=== PATIENT | male | born 1995 ===

== ENCOUNTER 2020-07-20 04:07 | Observation (INO) | payer MEDICAID, OTHER ==
[2020-07-20 04:53] LABS: Basophils % (Auto) 0.3 % (0.0-1.8); Eosinophils # (Auto) 0.1 K/mm3 (0.0-0.4); Eosinophils % (Auto) 0.9 % (0.0-4.3); Hematocrit 47.3 % (35.5-45.6); Hemoglobin 16.2 gm/dl (11.8-15.2); Lymphocytes # (Auto) 1.8 K/mm3 (1.2-5.4); Lymphocytes % (Auto) 25.9 % (13.4-35.0); Mean Corpuscular HGB Conc 34 % (32-34); Mean Corpuscular Volume 81 fl (84-94); Monocytes # (Auto) 0.6 K/mm3 (0.0-0.8); Monocytes % (Auto) 7.9 % (0.0-7.3); Platelet Count 347 K/mm3 (140-440); Red Blood Count 5.86 M/mm3 (3.65-5.03); Red Cell Distribution Width 13.1 % (13.2-15.2)
[2020-07-20 05:17] LABS: Alanine Aminotransferase 32 units/L (7-56); Albumin 4.4 g/dL (3.9-5); BUN/Creatinine Ratio 9; Blood Urea Nitrogen 10 mg/dL (9-20); Calcium 9.4 mg/dL (8.4-10.2); Hemolysis Index 6
[2020-07-20 06:12] LABS: Bilirubin,Urine NEG (Negative); Blood,Urine NEG (Negative); Color,Urine Straw (Yellow); Protein,Urine <15 mg/dL mg/dL (Negative); Urobilinogen,Urine < 2.0 mg/dL (<2.0)
[2020-07-20 06:38] LABS: Amphetamine Screen,Urine Negative; Benzodiazepines Screen,Urine Negative; Cannabinoid Screen,Urine Negative; Cocaine Screen,Urine Negative; Methadone Screen,Urine Negative; Opiate Screen,Urine Negative
--- NOTE | 2020-07-20 06:47 | Emergency Department Report ---
ED General Adult HPI - General Chief complaint: Arrhythmia/Palpitations Stated complaint: RAPID HEART BEAT/ANXIETY Time Seen by Provider: 07/20/20 06:12 Source: patient Mode of arrival: Ambulatory Limitations: No Limitations - History of Present Illness Initial comments: This is a 25-year-old man with a history of "prediabetes", hypertension but not hyperlipidemia. Is compliant with his amlodipine and another medicine for hypertension. He has had a previous work-up for thyroid disease which was negative. Apparently, he arrived at this facility with a heart rate of 173 which is documented in the triage note. He arrived prior to my arrival. He has been persistently tachycardic. Patient states that he is somewhat obsessed with taking his blood pressure. He states that he often has tachycardia when he takes his blood pressure apparently due to anxiety. He was concerned about his blood pressure being elevated last night and a rapid heart rate. Therefore, he decided to come to the hospital. In route to the hospital he had an episode of substernal chest heaviness associated with tingling of both his arms. He denied hyperventilation. He denied recent cough, fever or chills or dyspnea. Patient stated that he was able to do a stress test 5 years ago which he reports to have been negative. - Related Data Previous Rx's Medication Instructions Recorded Last Taken Type Ibuprofen [Motrin] 800 mg PO Q8H PRN #30 tablet 05/07/14 Unknown Rx Omeprazole [PriLOSEC] 20 mg PO BID #20 cap 05/07/14 Unknown Rx Allergies Allergy/AdvReac Type Severity Reaction Status Date / Time amoxicillin Allergy Swelling Verified 05/07/14 16:38 ED Review of Systems ROS: Stated complaint: RAPID HEART BEAT/ANXIETY Other details as noted in HPI ED Past Medical Hx - Past Medical History Previous Medical History?: Yes Hx Hypertension: Yes Hx Psychiatric Treatment: Yes (anxiety) - Surgical History Past Surgical History?: No - Social History Smoking Status: Never Smoker Substance Use Type: None - Medications Home Medications: Home Medications Medication Instructions Recorded Confirmed Last Taken Type Ibuprofen [Motrin] 800 mg PO Q8H PRN #30 tablet 05/07/14 Unknown Rx Omeprazole [PriLOSEC] 20 mg PO BID #20 cap 05/07/14 Unknown Rx ED Physical Exam - General Limitations: No Limitations ED Course Vital Signs 07/20/20 07/20/20 07/20/20 04:28 04:35 04:45 Temperature 98.1 F 99.9 F H Pulse Rate 111 H 116 H 98 H Respiratory 20 16 19 Rate Blood Pressure 143/82 Blood Pressure 150/82 [Left] O2 Sat by Pulse 99 97 95 Oximetry 07/20/20 07/20/20 07/20/20 05:00 05:15 05:30 Temperature Pulse Rate 87 93 H 91 H Respiratory 17 17 17 Rate Blood Pressure 135/72 138/81 162/91 Blood Pressure [Left] O2 Sat by Pulse 95 95 93 Oximetry 07/20/20 07/20/20 07/20/20 05:45 06:00 06:15 Temperature Pulse Rate 110 H 102 H 98 H Respiratory 17 17 15 Rate Blood Pressure 132/74 126/79 136/78 Blood Pressure [Left] O2 Sat by Pulse 97 97 Oximetry 07/20/20 07/20/20 07/20/20 06:30 06:45 07:00 Temperature Pulse Rate 92 H 147 H 101 H Respiratory 15 22 15 Rate Blood Pressure 131/81 136/77 132/75 Blood Pressure [Left] O2 Sat by Pulse 96 99 97 Oximetry 07/20/20 07/20/20 07/20/20 07:15 07:30 07:45 Temperature Pulse Rate 114 H 91 H 107 H Respiratory 21 15 19 Rate Blood Pressure 150/91 139/80 145/83 Blood Pressure [Left] O2 Sat by Pulse 98 97 95 Oximetry 07/20/20 08:00 Temperature Pulse Rate 101 H Respiratory 20 Rate Blood Pressure 132/71 Blood Pressure [Left] O2 Sat by Pulse 98 Oximetry - Reevaluation(s) Reevaluation #1: Discussed with hospitalist. Admit to observation. 07/20/20 10:28 07/20/20 10:33 The patient was observed for quite some time. If persistent episodes of tachycardia but addressed didn't go under 100 a number of times. However, on my reassessment his heart rate was in the 150s. It was a sinus mechanism. He does appear to have a quite labile tachycardia despite a liter of fluids and a milligram of Ativan IV. Patient was found to have a normal D-dimer. His EKG was somewhat suggestive of electrolyte disorder there were inferolateral ST-T wave inversions which remain nonspecific. He has a suggestion of U wave which is minimal. His potassium was 3.3. This was repleted orally. ED Medical Decision Making - Lab Data Result diagrams: 07/20/20 04:42 07/20/20 04:42 Laboratory Results - last 24 hr 07/20/20 07/20/20 07/20/20 04:42 04:42 04:42 WBC 7.1 RBC 5.86 H Hgb 16.2 H Hct 47.3 H MCV 81 L MCH 28 MCHC 34 RDW 13.1 L Plt Count 347 Lymph % (Auto) 25.9 [place] % (Auto) 7.9 H Eos % (Auto) 0.9 Baso % (Auto) 0.3 Lymph # (Auto) 1.8 [place] # (Auto) 0.6 Eos # (Auto) 0.1 Baso # (Auto) 0.0 Seg Neutrophils % 65.0 Seg Neutrophils # 4.6 Sodium 136 L Potassium 3.3 L Chloride 96.4 L Carbon Dioxide 27 Anion Gap 16 BUN 10 Creatinine 1.1 Estimated GFR > 60 BUN/Creatinine Ratio 9 Glucose 157 H Calcium 9.4 Total Bilirubin 0.60 AST 23 ALT 32 Alkaline Phosphatase 82 Total Protein 8.0 Albumin 4.4 Albumin/Globulin Ratio 1.2 TSH 1.980 Urine Color Urine Turbidity Urine pH Ur Specific [place] Urine Protein Urine Glucose (UA) Urine Ketones Urine Blood Urine Nitrite Urine Bilirubin Urine Urobilinogen Ur Leukocyte Esterase Urine WBC (Auto) Urine RBC (Auto) Salicylates Urine Opiates Screen Urine Methadone Screen Acetaminophen Ur Barbiturates Screen Ur Phencyclidine Scrn Ur Amphetamines Screen U Benzodiazepines Scrn Urine Cocaine Screen U Marijuana (THC) Screen Drugs of Abuse Note Plasma/Serum Alcohol 07/20/20 07/20/20 07/20/20 04:42 04:42 04:42 WBC RBC Hgb Hct MCV MCH MCHC RDW Plt Count Lymph % (Auto) [place] % (Auto) Eos % (Auto) Baso % (Auto) Lymph # (Auto) [place] # (Auto) Eos # (Auto) Baso # (Auto) Seg Neutrophils % Seg Neutrophils # Sodium Potassium Chloride Carbon Dioxide Anion Gap BUN Creatinine Estimated GFR BUN/Creatinine Ratio Glucose Calcium Total Bilirubin AST ALT Alkaline Phosphatase Total Protein Albumin Albumin/Globulin Ratio TSH Urine Color Urine Turbidity Urine pH Ur Specific [place] Urine Protein Urine Glucose (UA) Urine Ketones Urine Blood Urine Nitrite Urine Bilirubin Urine Urobilinogen Ur Leukocyte Esterase Urine WBC (Auto) Urine RBC (Auto) Salicylates < 0.3 L Urine Opiates Screen Urine Methadone Screen Acetaminophen 5.0 L Ur Barbiturates Screen Ur Phencyclidine Scrn Ur Amphetamines Screen U Benzodiazepines Scrn Urine Cocaine Screen U Marijuana (THC) Screen Drugs of Abuse Note Plasma/Serum Alcohol < 0.01 07/20/20 07/20/20 05:51 05:51 WBC RBC Hgb Hct MCV MCH MCHC RDW Plt Count Lymph % (Auto) [place] % (Auto) Eos % (Auto) Baso % (Auto) Lymph # (Auto) [place] # (Auto) Eos # (Auto) Baso # (Auto) Seg Neutrophils % Seg Neutrophils # Sodium Potassium Chloride Carbon Dioxide Anion Gap BUN Creatinine Estimated GFR BUN/Creatinine Ratio Glucose Calcium Total Bilirubin AST ALT Alkaline Phosphatase Total Protein Albumin Albumin/Globulin Ratio TSH Urine Color Straw Urine Turbidity Clear Urine pH 7.0 Ur Specific [place] 1.005 Urine Protein <15 mg/dl Urine Glucose (UA) Neg Urine Ketones Neg Urine Blood Neg Urine Nitrite Neg Urine Bilirubin Neg Urine Urobilinogen < 2.0 Ur Leukocyte Esterase Neg Urine WBC (Auto) 0.0 Urine RBC (Auto) 1.0 Salicylates Urine Opiates Screen Negative Urine Methadone Screen Negative Acetaminophen Ur Barbiturates Screen Negative Ur Phencyclidine Scrn Negative Ur Amphetamines Screen Negative U Benzodiazepines Scrn Negative Urine Cocaine Screen Negative U Marijuana (THC) Screen Negative Drugs of Abuse Note Disclamer Plasma/Serum Alcohol Laboratory Results - last 24 hr 07/20/20 07/20/20 07/20/20 04:42 04:42 04:42 WBC 7.1 RBC 5.86 H Hgb 16.2 H Hct 47.3 H MCV 81 L MCH 28 MCHC 34 RDW 13.1 L Plt Count 347 Lymph % (Auto) 25.9 [place] % (Auto) 7.9 H Eos % (Auto) 0.9 Baso % (Auto) 0.3 Lymph # (Auto) 1.8 [place] # (Auto) 0.6 Eos # (Auto) 0.1 Baso # (Auto) 0.0 Seg Neutrophils % 65.0 Seg Neutrophils # 4.6 PT INR APTT D-Dimer Sodium 136 L Potassium 3.3 L Chloride 96.4 L Carbon Dioxide 27 Anion Gap 16 BUN 10 Creatinine 1.1 Estimated GFR > 60 BUN/Creatinine Ratio 9 Glucose 157 H Calcium 9.4 Magnesium Total Bilirubin 0.60 AST 23 ALT 32 Alkaline Phosphatase 82 Total Creatine Kinase CK-MB (CK-2) CK-MB (CK-2) Rel Index Troponin T NT-Pro-B Natriuret Pep Total Protein 8.0 Albumin 4.4 Albumin/Globulin Ratio 1.2 TSH 1.980 Urine Color Urine Turbidity Urine pH Ur Specific [place] Urine Protein Urine Glucose (UA) Urine Ketones Urine Blood Urine Nitrite Urine Bilirubin Urine Urobilinogen Ur Leukocyte Esterase Urine WBC (Auto) Urine RBC (Auto) Salicylates Urine Opiates Screen Urine Methadone Screen Acetaminophen Ur Barbiturates Screen Ur Phencyclidine Scrn Ur Amphetamines Screen U Benzodiazepines Scrn Urine Cocaine Screen U Marijuana (THC) Screen Drugs of Abuse Note Plasma/Serum Alcohol 07/20/20 07/20/20 07/20/20 04:42 04:42 04:42 WBC RBC Hgb Hct MCV MCH MCHC RDW Plt Count Lymph % (Auto) [place] % (Auto) Eos % (Auto) Baso % (Auto) Lymph # (Auto) [place] # (Auto) Eos # (Auto) Baso # (Auto) Seg Neutrophils % Seg Neutrophils # PT INR APTT D-Dimer Sodium Potassium Chloride Carbon Dioxide Anion Gap BUN Creatinine Estimated GFR BUN/Creatinine Ratio Glucose Calcium Magnesium Total Bilirubin AST ALT Alkaline Phosphatase Total Creatine Kinase CK-MB (CK-2) CK-MB (CK-2) Rel Index Troponin T NT-Pro-B Natriuret Pep Total Protein Albumin Albumin/Globulin Ratio TSH Urine Color Urine Turbidity Urine pH Ur Specific [place] Urine Protein Urine Glucose (UA) Urine Ketones Urine Blood Urine Nitrite Urine Bilirubin Urine Urobilinogen Ur Leukocyte Esterase Urine WBC (Auto) Urine RBC (Auto) Salicylates < 0.3 L Urine Opiates Screen Urine Methadone Screen Acetaminophen 5.0 L Ur Barbiturates Screen Ur Phencyclidine Scrn Ur Amphetamines Screen U Benzodiazepines Scrn Urine Cocaine Screen U Marijuana (THC) Screen Drugs of Abuse Note Plasma/Serum Alcohol < 0.01 07/20/20 07/20/20 07/20/20 05:51 05:51 06:58 WBC RBC Hgb Hct MCV MCH MCHC RDW Plt Count Lymph % (Auto) [place] % (Auto) Eos % (Auto) Baso % (Auto) Lymph # (Auto) [place] # (Auto) Eos # (Auto) Baso # (Auto) Seg Neutrophils % Seg Neutrophils # PT 12.5 INR 0.94 APTT 31.9 D-Dimer Sodium Potassium Chloride Carbon Dioxide Anion Gap BUN Creatinine Estimated GFR BUN/Creatinine Ratio Glucose Calcium Magnesium Total Bilirubin AST ALT Alkaline Phosphatase Total Creatine Kinase CK-MB (CK-2) CK-MB (CK-2) Rel Index Troponin T NT-Pro-B Natriuret Pep Total Protein Albumin Albumin/Globulin Ratio TSH Urine Color Straw Urine Turbidity Clear Urine pH 7.0 Ur Specific [place] 1.005 Urine Protein <15 mg/dl Urine Glucose (UA) Neg Urine Ketones Neg Urine Blood Neg Urine Nitrite Neg Urine Bilirubin Neg Urine Urobilinogen < 2.0 Ur Leukocyte Esterase Neg Urine WBC (Auto) 0.0 Urine RBC (Auto) 1.0 Salicylates Urine Opiates Screen Negative Urine Methadone Screen Negative Acetaminophen Ur Barbiturates Screen Negative Ur Phencyclidine Scrn Negative Ur Amphetamines Screen Negative U Benzodiazepines Scrn Negative Urine Cocaine Screen Negative U Marijuana (THC) Screen Negative Drugs of Abuse Note Disclamer Plasma/Serum Alcohol 07/20/20 07/20/20 06:58 06:58 WBC RBC Hgb Hct MCV MCH MCHC RDW Plt Count Lymph % (Auto) [place] % (Auto) Eos % (Auto) Baso % (Auto) Lymph # (Auto) [place] # (Auto) Eos # (Auto) Baso # (Auto) Seg Neutrophils % Seg Neutrophils # PT INR APTT D-Dimer < 135.00 Sodium Potassium Chloride Carbon Dioxide Anion Gap BUN Creatinine Estimated GFR BUN/Creatinine Ratio Glucose Calcium Magnesium 1.90 Total Bilirubin AST ALT Alkaline Phosphatase Total Creatine Kinase 185 H CK-MB (CK-2) 1.2 CK-MB (CK-2) Rel Index 0.6 Troponin T < 0.010 NT-Pro-B Natriuret Pep 9.91 Total Protein Albumin Albumin/Globulin Ratio TSH Urine Color Urine Turbidity Urine pH Ur Specific [place] Urine Protein Urine Glucose (UA) Urine Ketones Urine Blood Urine Nitrite Urine Bilirubin Urine Urobilinogen Ur Leukocyte Esterase Urine WBC (Auto) Urine RBC (Auto) Salicylates Urine Opiates Screen Urine Methadone Screen Acetaminophen Ur Barbiturates Screen Ur Phencyclidine Scrn Ur Amphetamines Screen U Benzodiazepines Scrn Urine Cocaine Screen U Marijuana (THC) Screen Drugs of Abuse Note Plasma/Serum Alcohol - EKG Data -: EKG Interpreted by Pa EKG shows normal: sinus rhythm, axis, intervals, QRS complexes Rate: normal - EKG Data Interpretation: nonspecific ST-T wave thu - Radiology Data Radiology results: report reviewed Critical care attestation.: If time is entered above; I have spent that time in minutes in the direct care of this critically ill patient, excluding procedure time. ED Disposition Clinical Impression: Tachycardia, Morbid obesity, Abnormal EKG, Essential hypertension Chest pain Qualifiers: Chest pain type: unspecified Qualified Code(s): R07.9 - Chest pain, unspecified Type II diabetes mellitus Qualifiers: Diabetes mellitus structural rigger insulin use: unspecified structural rigger insulin use status Diabetes mellitus complication status: without complication Qualified Code(s): E11.9 - Type 2 diabetes mellitus without complications Disposition: 09 OP ADMIT IP TO THIS HOSP Is pt being admited?: Yes Does the pt Need Aspirin: Yes Condition: Stable Instructions: Nonspecific Chest Pain, Adult, Diabetes Mellitus Type 2 in Adults (ED), Hypertension (ED) Time of Disposition: 10:39
[2020-07-20] MEDS ORDERED: SODIUM CHLORIDE 0.9% 1000 ML 1,000 ML IV ONE (06:48)
[2020-07-20] MEDS ORDERED: LORazepam 2 MG/ML VIAL IV ONE (06:49)
--- NOTE | 2020-07-20 07:40 | XRay Report ---
CHEST 1 VIEW INDICATION / CLINICAL INFORMATION: hypertension. COMPARISON: Chest radiograph 05/07/2014 FINDINGS: SUPPORT DEVICES: None. HEART / MEDIASTINUM: No significant abnormality. LUNGS / PLEURA: No significant pulmonary or pleural abnormality. No pneumothorax. ADDITIONAL FINDINGS: No significant additional findings. IMPRESSION: 1. No acute findings. Signer Name: Saloni Menezes MD Signed: 07/20/2020 7:36 AM Workstation Name: [id number]
[2020-07-20 08:17] LABS: INR 0.94 (0.87-1.13)
[2020-07-20 08:18] LABS: Partial Thromboplastin Time 31.9 Sec. (24.2-36.6)
[2020-07-20 08:37] LABS: Creatine Kinase MB 1.2 ng/mL (0.0-4.0)
[2020-07-20] MEDS ORDERED: POTASSIUM CHLORIDE ER 20 MEQ TAB PO ONE (10:08)
[2020-07-20] MEDS ORDERED: ASPIRIN 325 MG TAB PO ONE (10:29)
[2020-07-20] MEDS ORDERED: clonazePAM 0.5 MG TAB PO PRN (12:00)
--- NOTE | 2020-07-20 12:24 | Consultation ---
History of Present Illness Consult date: 07/20/20 Consult reason: tachycardia History of present illness: Patient is a 25-year old male who reports a history of hypertension, anxiety, and borderline diabetes managed by diet. No prior cardiac history. He presents to the emergency department with an anxiety attack. He associates his anxiety attack with palpitations, shortness of breath, and diaphoresis. He denies syncope. Denies ETOH and substance abuse. Denies intake of energy drinks. He was treated with intravenous Ativan in the emergency department. Currently, he appears comfortable, sitting up in bed, and has no complaints. Chest x-ray is negative and a 12-lead ECG is sinus tachycardia with occasional PACs. Heart rate 110. There were no ventricular arrhythmias seen on telemetry. A cardiology consultation has been requested for sinus tachycardia associated with anxiety. Past History Past Medical History: diabetes (borderline, managed with diet), hypertension Medications and Allergies Allergies Allergy/AdvReac Type Severity Reaction Status Date / Time amoxicillin Allergy Swelling Verified 05/07/14 16:38 Home Medications Medication Instructions Recorded Confirmed Last Taken Type Ibuprofen [Motrin] 800 mg PO Q8H PRN #30 tablet 05/07/14 Unknown Rx Omeprazole [PriLOSEC] 20 mg PO BID #20 cap 05/07/14 Unknown Rx Active Meds: Active Medications Clonazepam (Clonazepam 0.5 Mg Tab) 1 mg PO Q8H PRN PRN Reason: Anxiety Review of Systems Cardiovascular: palpitations Physical Examination Vital Signs Temp Pulse Resp Pulse Ox 98.1 F 111 H 20 99 07/20/20 04:28 07/20/20 04:28 07/20/20 04:28 07/20/20 04:28 General appearance: no acute distress HEENT: Positive: PERRL Neck: Positive: trachea midline Cardiac: Positive: Tachycardia Lungs: Positive: Normal Breath Sounds Neuro: Positive: Grossly Intact Extremities: Absent: edema Results 07/20/20 04:42 07/20/20 04:42 Cardiac Enzymes 07/20/20 07/20/20 Range/Units 04:42 06:58 AST 23 (5-40) units/L CK-MB (CK-2) 1.2 (0.0-4.0) ng/mL Coagulation 07/20/20 Range/Units 06:58 PT 12.5 (12.2-14.9) Sec. INR 0.94 (0.87-1.13) APTT 31.9 (24.2-36.6) Sec. CBC 07/20/20 Range/Units 04:42 WBC 7.1 (4.5-11.0) K/mm3 RBC 5.86 H (3.65-5.03) M/mm3 Hgb 16.2 H (11.8-15.2) gm/dl Hct 47.3 H (35.5-45.6) % Plt Count 347 (140-440) K/mm3 Lymph # (Auto) 1.8 (1.2-5.4) K/mm3 [place] # (Auto) 0.6 (0.0-0.8) K/mm3 Eos # (Auto) 0.1 (0.0-0.4) K/mm3 Baso # (Auto) 0.0 (0.0-0.1) K/mm3 Comprehensive Metabolic Panel 07/20/20 Range/Units 04:42 Sodium 136 L (137-145) mmol/L Potassium 3.3 L (3.6-5.0) mmol/L Chloride 96.4 L (98-107) mmol/L Carbon Dioxide 27 (22-30) mmol/L BUN 10 (9-20) mg/dL Creatinine 1.1 (0.8-1.3) mg/dL Glucose 157 H (75-100) mg/dL Calcium 9.4 (8.4-10.2) mg/dL AST 23 (5-40) units/L ALT 32 (7-56) units/L Alkaline Phosphatase 82 (35-129) units/L Total Protein 8.0 (6.3-8.2) g/dL Albumin 4.4 (3.9-5) g/dL
--- NOTE | 2020-07-20 12:54 | History and Physical Report ---
History of Present Illness Date of examination: 07/20/20 Date of admission: 07/20/20 10:40 Chief complaint: Dizziness History of present illness: 25-year-old male with medical history significant for morbid obesity, panic attack, hypertension, prediabetes presented to the emergency department with complaints of dizziness. He states the dizziness happens when he stands on his leg for long time. Patient denied blurring of vision, chest pain, shortness of breath, cough. Patient said he has panic attack earlier this morning. His heart rate was very high and per ED physician record it was 173. Patient was on fluoxetine for panic attack but he stopped taking because he could not sleep at night. Patient does not follow with a psychiatrist. Patient said he has family history of panic attack, his mother and cousin. In the emergency department patient was tachycardic between 120 and 140 during my examination. The pressure was within normal limit. Patient was anxious. Cardiology consulted for palpitation. Patient will be admitted for observation. REVIEW OF SYSTEMS: GENERAL: no weight change, no fatigue, no fever HEAD: no head ache EYES: no blurry vision, no acute visual loss EARS: no hearing loss, no discharge, no earache NOSE: no stuffiness, no sneezing, no discharge MOUTH, THROAT AND NECK: no bleeding gums, no sore throat, no swollen neck CARDIAC: no palpitations, no dyspnea on exertion, no orthopnea, no PND, no edema, no chest pain RESPIRATORY: no shortness of breath, no wheeze, no cough, no sputum, no hemoptysis, no asthma GI: no decreased appetite, no nausea, no vomiting, no dysphagia, no diarrhea, no constipation, no abdominal pain URINARY: No urgency, hematuria, dysuria or frequency. MUSCULOSKELETAL: no muscle weakness, no pain, no joint stiffness NEUROLOGIC: no loss of sensation/numbness, no tingling, no tremors, no weaknes s/paralysis HEMATOLOGIC: no anemia, no easy bruising SKIN: no rashes ENDOCRINE: no heat/cold intolerance, no polyuria, no polydipsia, no thyroid problems, no diabetes PSYCHIATRIC: no depression, no suicidal ideations Past History Past Medical History: diabetes (borderline, managed with diet), hypertension Past Surgical History: No surgical history Social history: full code. denies: smoking, alcohol abuse, prescription drug abuse Family history: other (Panic attack and hypertension in his mother, panic attack in his cousin) Medications and Allergies Allergies Allergy/AdvReac Type Severity Reaction Status Date / Time amoxicillin Allergy Swelling Verified 05/07/14 16:38 Home Medications Medication Instructions Recorded Confirmed Last Taken Type Ibuprofen [Motrin] 800 mg PO Q8H PRN #30 tablet 05/07/14 Unknown Rx Omeprazole [PriLOSEC] 20 mg PO BID #20 cap 05/07/14 Unknown Rx Active Meds: Active Medications Clonazepam (Clonazepam 0.5 Mg Tab) 1 mg PO Q8H PRN PRN Reason: Anxiety Exam - Physical Exam Narrative exam: Not in cardiopulmonary distress. The patient is morbidly obese. Vital signs as documented. Head exam is unremarkable. No scleral icterus . Neck is without jugular venous distension, thyromegaly, or carotid bruits. Lungs are clear to auscultation. Cardiac exam reveals regular rate and Rhythm. Abdominal exam reveals normal bowel sounds, nontender, no organomegaly. Extremities are nonedematous and both femoral and pedal pulses are normal. PANTRY COOK: Alert and oriented 3. No focal weakness. - Constitutional Vitals: Temp Pulse Resp BP Pulse Ox 99.9 F H 110 H 21 140/72 98 07/20/20 04:35 07/20/20 10:30 07/20/20 10:30 07/20/20 10:30 07/20/20 10:30 HEART Score - HEART Score Troponin: Troponin T < 0.010 ng/mL (0.00-0.029) 07/20/20 06:58 Results - Labs CBC & Chem 7: 07/20/20 04:42 07/20/20 04:42 Labs: Laboratory Last Values WBC 7.1 K/mm3 (4.5-11.0) 07/20/20 04:42 RBC 5.86 M/mm3 (3.65-5.03) H 07/20/20 04:42 Hgb 16.2 gm/dl (11.8-15.2) H 07/20/20 04:42 Hct 47.3 % (35.5-45.6) H 07/20/20 04:42 MCV 81 fl (84-94) L 07/20/20 04:42 MCH 28 pg (28-32) 07/20/20 04:42 MCHC 34 % (32-34) 07/20/20 04:42 RDW 13.1 % (13.2-15.2) L 07/20/20 04:42 Plt Count 347 K/mm3 (140-440) 07/20/20 04:42 Lymph % (Auto) 25.9 % (13.4-35.0) 07/20/20 04:42 [place] % (Auto) 7.9 % (0.0-7.3) H 07/20/20 04:42 Eos % (Auto) 0.9 % (0.0-4.3) 07/20/20 04:42 Baso % (Auto) 0.3 % (0.0-1.8) 07/20/20 04:42 Lymph # (Auto) 1.8 K/mm3 (1.2-5.4) 07/20/20 04:42 [place] # (Auto) 0.6 K/mm3 (0.0-0.8) 07/20/20 04:42 Eos # (Auto) 0.1 K/mm3 (0.0-0.4) 07/20/20 04:42 Baso # (Auto) 0.0 K/mm3 (0.0-0.1) 07/20/20 04:42 Seg Neutrophils % 65.0 % (40.0-70.0) 07/20/20 04:42 Seg Neutrophils # 4.6 K/mm3 (1.8-7.7) 07/20/20 04:42 PT 12.5 Sec. (12.2-14.9) 07/20/20 06:58 INR 0.94 (0.87-1.13) 07/20/20 06:58 APTT 31.9 Sec. (24.2-36.6) 07/20/20 06:58 D-Dimer < 135.00 ng/mlDDU (0-234) 07/20/20 06:58 Sodium 136 mmol/L (137-145) L 07/20/20 04:42 Potassium 3.3 mmol/L (3.6-5.0) L 07/20/20 04:42 Chloride 96.4 mmol/L (98-107) L 07/20/20 04:42 Carbon Dioxide 27 mmol/L (22-30) 07/20/20 04:42 Anion Gap 16 mmol/L 07/20/20 04:42 BUN 10 mg/dL (9-20) 07/20/20 04:42 Creatinine 1.1 mg/dL (0.8-1.3) 07/20/20 04:42 Estimated GFR > 60 ml/min 07/20/20 04:42 BUN/Creatinine Ratio 9 % 07/20/20 04:42 Glucose 157 mg/dL (75-100) H 07/20/20 04:42 Calcium 9.4 mg/dL (8.4-10.2) 07/20/20 04:42 Magnesium 1.90 mg/dL (1.7-2.3) 07/20/20 06:58 Total Bilirubin 0.60 mg/dL (0.1-1.2) 07/20/20 04:42 AST 23 units/L (5-40) 07/20/20 04:42 ALT 32 units/L (7-56) 07/20/20 04:42 Alkaline Phosphatase 82 units/L (35-129) 07/20/20 04:42 Total Creatine Kinase 185 units/L (55-170) H 07/20/20 06:58 CK-MB (CK-2) 1.2 ng/mL (0.0-4.0) 07/20/20 06:58 CK-MB (CK-2) Rel Index 0.6 (0-4) 07/20/20 06:58 Troponin T < 0.010 ng/mL (0.00-0.029) 07/20/20 06:58 NT-Pro-B Natriuret Pep 9.91 pg/mL (0-450) 07/20/20 06:58 Total Protein 8.0 g/dL (6.3-8.2) 07/20/20 04:42 Albumin 4.4 g/dL (3.9-5) 07/20/20 04:42 Albumin/Globulin Ratio 1.2 % 07/20/20 04:42 TSH 1.980 mlU/mL (0.270-4.200) 07/20/20 04:42 Urine Color Straw (Yellow) 07/20/20 05:51 Urine Turbidity Clear (Clear) 07/20/20 05:51 Urine pH 7.0 (5.0-7.0) 07/20/20 05:51 Ur Specific [place] 1.005 (1.003-1.030) 07/20/20 05:51 Urine Protein <15 mg/dl mg/dL (Negative) 07/20/20 05:51 Urine Glucose (UA) Neg mg/dL (Negative) 07/20/20 05:51 Urine Ketones Neg mg/dL (Negative) 07/20/20 05:51 Urine Blood Neg (Negative) 07/20/20 05:51 Urine Nitrite Neg (Negative) 07/20/20 05:51 Urine Bilirubin Neg (Negative) 07/20/20 05:51 Urine Urobilinogen < 2.0 mg/dL (<2.0) 07/20/20 05:51 Ur Leukocyte Esterase Neg (Negative) 07/20/20 05:51 Urine WBC (Auto) 0.0 /HPF (0.0-6.0) 07/20/20 05:51 Urine RBC (Auto) 1.0 /HPF (0.0-6.0) 07/20/20 05:51 Salicylates < 0.3 mg/dL (2.8-20.0) L 07/20/20 04:42 Urine Opiates Screen Negative 07/20/20 05:51 Urine Methadone Screen Negative 07/20/20 05:51 Acetaminophen 5.0 ug/mL (10.0-30.0) L 07/20/20 04:42 Ur Barbiturates Screen Negative 07/20/20 05:51 Ur Phencyclidine Scrn Negative 07/20/20 05:51 Ur Amphetamines Screen Negative 07/20/20 05:51 U Benzodiazepines Scrn Negative 07/20/20 05:51 Urine Cocaine Screen Negative 07/20/20 05:51 U Marijuana (THC) Screen Negative 07/20/20 05:51 Drugs of Abuse Note Disclamer 07/20/20 05:51 Plasma/Serum Alcohol < 0.01 % (0-0.07) 07/20/20 04:42 Microbiology: Microbiology 07/20/20 06:58 Peripheral/Venous Blood Culture - Preliminary Culture in Progress 07/20/20 06:58 Peripheral/Venous Blood Culture - Preliminary Culture in Progress Assessment and Plan Assessment and plan: Tachycardia -Likely due to panic attack -Cardiology consulted Anxiety, panic attack -Patient was started with fluoxetine with his primary care physician but he stopped taking it because of he was not able to sleep at night -I will start him on Klonopin Morbid obesity -Counseled about lifestyle modification Hypertension -Currently controlled -If it is going up we will start his antihypertensives DVT prophylaxis -Lovenox Disposition -Admit to telemetry floor for observation. Advance Directives: Yes VTE prophylaxis?: Chemical Plan of care discussed with patient/family: Yes
[2020-07-20] MEDS: METOPROLOL TARTRATE 25 MG TAB PO SCH ×2 (14:17→22:04)
[2020-07-20] MEDS: amLODIPine 10 MG TAB PO SCH (14:18)
[2020-07-20] MEDS ORDERED: ENOXAPARIN 40 MG/0.4 ML INJ SUB-Q SCH (22:00)
[2020-07-21 08:30] VITALS: BP 142/74
[2020-07-21 08:37] LABS: BUN/Creatinine Ratio 7; Blood Urea Nitrogen 7 mg/dL (9-20); Calcium 9.8 mg/dL (8.4-10.2); Hemolysis Index 3
[2020-07-21] MEDS: METOPROLOL TARTRATE 25 MG TAB PO SCH (09:04)
[2020-07-21] MEDS: amLODIPine 10 MG TAB PO SCH (09:06)
--- NOTE | 2020-07-21 09:50 | Discharge Summary ---
Providers - Providers Date of Admission: 07/20/20 10:40 Date of discharge: 07/21/20 Attending physician: CAMILO HERRMANN MD 07/20/20 11:22 Consult to Physician [CONS] Routine Comment: Consulting Provider: PIPPA RUFFIN Physician Instructions: Reason For Exam: Dizziness, tachycardia Primary care physician: EQUINE VET Hospitalization Reason for admission: Tachycardia, panic attack, anxiety disorder Condition: Stable Hospital course: History of present illness: 25-year-old male with medical history significant for morbid obesity, panic attack, hypertension, prediabetes presented to the emergency department with complaints of dizziness. He states the dizziness happens when he stands on his leg for long time. Patient denied blurring of vision, chest pain, shortness of breath, cough. Patient said he has panic attack earlier this morning. His heart rate was very high and per ED physician record it was 173. Patient was on fluoxetine for panic attack but he stopped taking because he could not sleep at night. Patient does not follow with a psychiatrist. Patient said he has family history of panic attack, his mother and cousin. In the emergency department patient was tachycardic between 120 and 140 during my examination. The pressure was within normal limit. Patient was anxious. Cardiology consulted for palpitation. Patient will be admitted for observation. Hospital course Patient is admitted to the floor for observation and was evaluated by cardiology. EKG so sinus tachycardia and cardiology recommend no further cardiac work-up. The most likely cause of his tachycardia is due to his panic attack/anxiety disorder. Patient was seen by primary care physician and fluoxetine was ordered but he does not want to take fluoxetine because of its side effects. Patient has hypertension and was on HCTZ and amlodipine, I discussed with the patient to change HCTZ with metoprolol but patient said he does not want to take metoprolol because of the side effects. I started him on as needed Klonopin. Also give him a few pills at the time of discharge and advised to follow-up with his primary care physician. He called his primary care physician made an arrangement. Also advised him to have follow-up with mental health. I discussed with my social media coordinator to give him resources. Patient was hemodynamically stable at time of discharge. I have extensive discussion with the patient about his condition and management plan, also mother was on the phone and both were in agreement with the plan of care. Disposition: DC-01 TO HOME OR SELFCARE Final Discharge Diagnosis (Prints w/discharge instructions): Sinus tachycardia. Panic attack. Anxiety disorder Time spent for discharge: 25-minutes - Discharge Diagnoses (1) Panic attacks Status: Acute (2) Anxiety disorder Status: Acute (3) Abnormal EKG Status: Acute (4) Morbid obesity Status: Acute (5) Tachycardia Status: Acute Core Measure Documentation - Palliative Care Palliative Care/ Comfort Measures: Not Applicable - Core Measures Any of the following diagnoses?: none Exam - Physical Exam Narrative exam: Not in cardiopulmonary distress. The patient is morbidly obese. Vital signs as documented. Head exam is unremarkable. No scleral icterus . Neck is without jugular venous distension, thyromegaly, or carotid bruits. Lungs are clear to auscultation. Cardiac exam reveals regular rate and Rhythm. Abdominal exam reveals normal bowel sounds, nontender, no organomegaly. Extremities are nonedematous and both femoral and pedal pulses are normal. CURATORIAL ASSISTANT: Alert and oriented 3. No focal weakness. - Constitutional Vitals: Temp Pulse Resp BP Pulse Ox 98.2 F 75 18 142/74 100 07/21/20 07:32 07/21/20 09:04 07/21/20 07:32 07/21/20 09:04 07/21/20 07:32 Plan Activity: no restrictions Weight Bearing Status: Full Weight Bearing Diet: regular Additional Instructions: Patient advised to follow-up with his primary care physician. Patient advised to schedule an appointment to see psychiatrist Follow up with: PRIMARY CAREMD [Primary Care Provider] - 3-5 Days Prescriptions: clonazePAM [KlonoPIN] 1 mg PO Q8H PRN #12 tablet PRN Reason: Anxiety
--- NOTE | 2020-07-21 17:38 | Electrocardiograph Report ---
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 No previous ECG available for comparison Electronically Signed On 07-21-2020 17:38:17 EDT by Arcenio Clemons
--- NOTE | 2020-07-21 17:45 | Electrocardiograph Report ---
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
== END 2020-07-21 11:15 | disposition home or self-care (01) ==
LOC: ED 04:07 → 4A 10:40
PROVIDERS: ADMIT Internal Medicine; ATTEND Internal Medicine
DX: I10 Essential (primary) hypertension (principal); E11.9 Type 2 diabetes mellitus without complications; R00.0 Tachycardia, unspecified; E66.01 Morbid (severe) obesity due to excess calories; R07.9 Chest pain, unspecified; F41.9 Anxiety disorder, unspecified; R94.31 Abnormal electrocardiogram [ECG] [EKG]; R77.8 Other specified abnormalities of plasma proteins; F41.0 Panic disorder [episodic paroxysmal anxiety]; Z68.43 Body mass index [BMI] 50.0-59.9, adult; Z79.899 Other long term (current) drug therapy; Z98.890 Other specified postprocedural states
CPT/HCPCS: 36415; 71045; 80048; 80053; 80307; 81001; 82550; 82553; 83735; 83880; 84443; 84484; 85025; 85379; 85610; 85730; 87040; 93005; 96361; 96372; 96374; 99285; G0378; J1650; J2060; J7030; 80320; G0480

== ENCOUNTER 2021-03-29 08:31 | Emergency (ER) | payer OTHER ==
--- NOTE | 2021-03-29 08:40 | Emergency Department Report ---
ED Palpitations HPI - General Chief Complaint: Arrhythmia/Palpitations Stated Complaint: AFIB Time Seen by Provider: 03/29/21 08:39 Source: EMS Mode of arrival: Stretcher Limitations: No Limitations - History of Present Illness Initial Comments: Patient presents secondary to palpitations and a rapid heartbeat. He noticed that his heart was beating fast and skipping beats. This been going on for several hours now. He came in for evaluation treatment. He feels very nervous and anxious about it. He has no chest pain. There is no shortness of breath. There is no cough or back pain. He has been using some [id number] decongestants lately. He has not been drinking any more caffeine than usual. Several years ago, he had a similar episode. He underwent cardiac evaluation including stress test, echo, and Holter monitor. None of that showed any acute pathology. He states he had not had symptoms until recently. - Related Data Home Medications Medication Instructions Recorded Confirmed Last Taken FLUoxetine HCL [PROzac] 40 mg PO QDAY 07/20/20 07/20/20 1 Day Ago ~07/19/20 amLODIPine 5 mg PO DAILY 07/20/20 07/20/20 1 Day Ago ~07/19/20 hydroCHLOROthiazide [HCTZ] 25 mg PO QDAY 07/20/20 07/20/20 1 Day Ago ~07/19/20 Previous Rx's Medication Instructions Recorded Last Taken Type clonazePAM [KlonoPIN] 1 mg PO Q8H PRN #12 tablet 07/21/20 Unknown Rx hydrOXYzine HCL [Atarax] 25 mg PO Q6HR PRN #30 tablet 03/29/21 Unknown Rx Allergies Allergy/AdvReac Type Severity Reaction Status Date / Time amoxicillin Allergy Swelling Verified 03/29/21 08:34 Penicillins Allergy Unknown Verified 03/29/21 08:34 ED Review of Systems ROS: Stated complaint: AFIB Other details as noted in HPI Comment: All other systems reviewed and negative Constitutional: denies: fever Eyes: denies: eye pain ENT: denies: throat pain Respiratory: denies: cough Cardiovascular: as per HPI Endocrine: denies: unexplained weight loss Gastrointestinal: denies: abdominal pain Genitourinary: denies: dysuria Musculoskeletal: denies: back pain Skin: denies: rash Neurological: denies: headache Hematological/Lymphatic: denies: easy bruising ED Past Medical Hx - Past Medical History Hx Hypertension: Yes Hx Psychiatric Treatment: Yes (anxiety) Hx HIV: No - Family History Family history: hypertension - Social History Smoking Status: Never Smoker - Medications Home Medications: Home Medications Medication Instructions Recorded Confirmed Last Taken Type FLUoxetine HCL [PROzac] 40 mg PO QDAY 07/20/20 07/20/20 1 Day Ago History ~07/19/20 amLODIPine 5 mg PO DAILY 07/20/20 07/20/20 1 Day Ago History ~07/19/20 hydroCHLOROthiazide [HCTZ] 25 mg PO QDAY 07/20/20 07/20/20 1 Day Ago History ~07/19/20 clonazePAM [KlonoPIN] 1 mg PO Q8H PRN #12 tablet 07/21/20 Unknown Rx hydrOXYzine HCL [Atarax] 25 mg PO Q6HR PRN #30 tablet 03/29/21 Unknown Rx ED Physical Exam - General Limitations: No Limitations, Other (Pulse ox noted and normal) General appearance: alert, in no apparent distress, anxious - Head Head exam: Present: atraumatic, normocephalic - Eye Eye exam: Present: normal appearance, EOMI. Absent: scleral icterus - ENT ENT exam: Present: normal orophraynx, normal external ear exam - Neck Neck exam: Present: normal inspection, meningismus - Respiratory Respiratory exam: Present: normal lung sounds bilaterally. Absent: respiratory distress - Cardiovascular Cardiovascular Exam: Present: normal rhythm, tachycardia - GI/Abdominal GI/Abdominal exam: Absent: tenderness, guarding - Extremities Exam Extremities exam: Present: normal capillary refill. Absent: calf tenderness - Back Exam Back exam: Absent: CVA tenderness (R), CVA tenderness (L) - Neurological Exam Neurological exam: Present: alert, oriented X3, normal gait. Absent: motor sensory deficit - Psychiatric Psychiatric exam: Present: anxious - Skin Skin exam: Present: warm, dry ED Course Vital Signs 03/29/21 03/29/21 08:32 08:44 Temperature 98.4 F Pulse Rate 104 H 150 H Respiratory 15 Rate Blood Pressure 128/89 156/91 [Left] O2 Sat by Pulse 97 99 Oximetry - Reevaluation(s) Reevaluation #1: 03/29/21 08:40 EMS was met upon arrival. Reevaluation #2: 03/29/21 15:39 Work-up was complete and the patient was discharged. ED Medical Decision Making - Lab Data Result diagrams: 03/29/21 09:18 03/29/21 09:18 Rhythm strip: Sinus tachycardia without ectopy per monitor observe 10 seconds. - EKG Data -: EKG Interpreted by Me - EKG Data 03/29/21 15:39 EKG shows normal sinus rhythm with normal intervals. There was no ST elevation suggestive of STEMI. There is no ectopy noted. - Medical Decision Making Patient presented with palpitations. Etiology for this is not known. I suspect that this is anxiety. Clinically, there is no evidence of dysrhythmia. He quintana s not appear to have any metabolic derangement or electrolyte derangement. There is no thyrotoxicosis evident. He has been using decongestants and this could be a medication reaction. However, clinically I believe this is anxiety. Patient was referred for outpatient evaluation and follow-up. He was given Vistaril to use for anxiety. Critical Care Time: No Critical care attestation.: If time is entered above; I have spent that time in minutes in the direct care of this critically ill patient, excluding procedure time. ED Disposition Clinical Impression: Palpitations Disposition: 01 HOME / SELF CARE / HOMELESS Is pt being admited?: No Condition: Stable Instructions: Palpitations, Arow-qc-Irud, Ambulatory Cardiac Monitoring Additional Instructions: Drink plenty water. Avoid caffeine and other cold medicine. Avoid stimulants. Follow-up with cardiology for an outpatient monitor. Return for problems. Prescriptions: hydrOXYzine HCL [Atarax] 25 mg PO Q6HR PRN #30 tablet PRN Reason: Anxiety Referrals: PRIMARY CAREMD [Primary Care Provider] - 3-5 Days ELLIOTT MERRILL MD [Staff Physician] - 3-5 Days
[2021-03-29 08:45] VITALS: BP 156/91
[2021-03-29] MEDS ORDERED: diphenhydrAMINE 50 MG/ML VIAL IV ONE (08:47)
[2021-03-29] MEDS ORDERED: LACTATED RINGERS 1,000 ML IV ONE (08:47)
[2021-03-29] MEDS ORDERED: LORazepam 2 MG/ML VIAL ONE (08:58)
[2021-03-29] MEDS ORDERED: diphenhydrAMINE 50 MG/ML VIAL ONE (10:18)
[2021-03-29 10:37] LABS: Hematocrit 48.9 % (35.5-45.6); Hemoglobin 16.1 gm/dl (11.8-15.2); Mean Corpuscular HGB Conc 33 % (32-34); Mean Corpuscular Volume 78 fl (84-94); Platelet Count 382 K/mm3 (140-440); Red Blood Count 6.23 M/mm3 (3.65-5.03); Red Cell Distribution Width 14.2 % (13.2-15.2)
[2021-03-29 10:55] LABS: BUN/Creatinine Ratio 13; Blood Urea Nitrogen 13 mg/dL (9-20); Calcium 9.8 mg/dL (8.4-10.2); Hemolysis Index 5
--- NOTE | 2021-03-30 10:53 | Electrocardiograph Report ---
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
== END 2021-03-29 12:22 | disposition home or self-care (01) ==
LOC: ED 08:31
DX: R00.2 Palpitations (principal); I10 Essential (primary) hypertension; Z88.0 Allergy status to penicillin; Z88.1 Allergy status to other antibiotic agents
CPT/HCPCS: 36415; 80048; 83735; 84443; 85027; 93005; 96361; 96374; 99284; J1200; J7120; J2060

== ENCOUNTER 2021-08-30 05:53 | Emergency (ER) | payer OTHER ==
[2021-08-30 07:40] LABS: Bilirubin,Urine NEG (Negative); Blood,Urine NEG (Negative); Color,Urine Yellow (Yellow); Protein,Urine <15 mg/dL mg/dL (Negative); Urobilinogen,Urine < 2.0 mg/dL (<2.0)
[2021-08-30 07:42] LABS: Mucus,Urine FEW /HPF
[2021-08-30 07:49] LABS: Basophils % (Auto) 0.3 % (0.0-1.8); Eosinophils # (Auto) 0.2 K/mm3 (0.0-0.4); Eosinophils % (Auto) 2.1 % (0.0-4.3); Hematocrit 44.4 % (35.5-45.6); Hemoglobin 14.7 gm/dl (11.8-15.2); Lymphocytes # (Auto) 2.9 K/mm3 (1.2-5.4); Lymphocytes % (Auto) 40.1 % (13.4-35.0); Mean Corpuscular HGB Conc 33 % (32-34); Mean Corpuscular Volume 80 fl (84-94); Monocytes # (Auto) 0.6 K/mm3 (0.0-0.8); Monocytes % (Auto) 8.3 % (0.0-7.3); Platelet Count 335 K/mm3 (140-440); Red Blood Count 5.54 M/mm3 (3.65-5.03)
[2021-08-30 08:06] LABS: Alanine Aminotransferase 29 units/L (7-56); Albumin 4.8 g/dL (3.9-5); BUN/Creatinine Ratio 10; Blood Urea Nitrogen 10 mg/dL (9-20); Calcium 9.9 mg/dL (8.4-10.2); Hemolysis Index 6
[2021-08-30] MEDS ORDERED: ONDANSETRON 4 MG/2 ML INJ IV ONE (13:16)
--- NOTE | 2021-08-30 13:22 | Emergency Department Report ---
<SARAH RUCKER - Last Filed: 08/30/21 14:55> ED Abdominal Pain HPI - General Chief Complaint: Abdominal Pain Stated Complaint: LOWER RT ABD PAIN ,CHILLS Time Seen by Provider: 08/30/21 12:37 Source: patient Mode of arrival: Ambulatory Limitations: No Limitations - History of Present Illness Initial Comments: 26-year-old morbidly obese male who presents with right lower abdominal discomfort that is been going on for the last 2 days progressively getting worse. Patient rated pain as 8/10 in severity. No fever but chills reported. No diarrhea or constipation noted. Turning to the left side worsening pain. No other modifying or associated factors reported. Severity scale (0 -10): 0 - Related Data Home Medications Medication Instructions Recorded Confirmed Last Taken FLUoxetine HCL [PROzac] 40 mg PO QDAY 07/20/20 07/20/20 1 Day Ago ~07/19/20 amLODIPine 5 mg PO DAILY 07/20/20 07/20/20 1 Day Ago ~07/19/20 hydroCHLOROthiazide [HCTZ] 25 mg PO QDAY 07/20/20 07/20/20 1 Day Ago ~07/19/20 Previous Rx's Medication Instructions Recorded Last Taken Type clonazePAM [KlonoPIN] 1 mg PO Q8H PRN #12 tablet 07/21/20 Unknown Rx hydrOXYzine HCL [Atarax] 25 mg PO Q6HR PRN #30 tablet 03/29/21 Unknown Rx traMADoL [Ultram] 50 mg PO Q6HR PRN #10 tablet 08/30/21 Unknown Rx Allergies Allergy/AdvReac Type Severity Reaction Status Date / Time amoxicillin Allergy Swelling Verified 08/30/21 06:37 Penicillins Allergy Unknown Verified 08/30/21 06:37 ED Review of Systems Comment: All other systems reviewed and negative Gastrointestinal: abdominal pain (RLQ), nausea ED Past Medical Hx - Past Medical History Previous Medical History?: Yes Hx Hypertension: Yes Hx Psychiatric Treatment: Yes (anxiety) Hx HIV: No - Surgical History Past Surgical History?: No - Social History Smoking Status: Never Smoker Substance Use Type: None - Medications Home Medications: Home Medications Medication Instructions Recorded Confirmed Last Taken Type FLUoxetine HCL [PROzac] 40 mg PO QDAY 07/20/20 07/20/20 1 Day Ago History ~07/19/20 amLODIPine 5 mg PO DAILY 07/20/20 07/20/20 1 Day Ago History ~07/19/20 hydroCHLOROthiazide [HCTZ] 25 mg PO QDAY 07/20/20 07/20/20 1 Day Ago History ~07/19/20 clonazePAM [KlonoPIN] 1 mg PO Q8H PRN #12 tablet 07/21/20 Unknown Rx hydrOXYzine HCL [Atarax] 25 mg PO Q6HR PRN #30 tablet 03/29/21 Unknown Rx traMADoL [Ultram] 50 mg PO Q6HR PRN #10 tablet 08/30/21 Unknown Rx ED Physical Exam - General Limitations: No Limitations General appearance: alert, in no apparent distress, obese - Head Head exam: Present: normal inspection - Eye Eye exam: Present: normal appearance Pupils: Present: normal accommodation - ENT ENT exam: Present: normal exam, normal orophraynx, mucous membranes moist - Neck Neck exam: Absent: tenderness - Respiratory Respiratory exam: Present: normal lung sounds bilaterally. Absent: respiratory distress, accessory muscle use - Cardiovascular Cardiovascular Exam: Present: regular rate, normal rhythm, normal heart sounds - GI/Abdominal GI/Abdominal exam: Present: soft, normal bowel sounds. Absent: distended, tenderness - Extremities Exam Extremities exam: Present: normal inspection, full ROM, normal capillary refill. Absent: tenderness - Back Exam Back exam: Present: normal inspection, full ROM. Absent: tenderness, CVA tenderness (R), CVA tenderness (L) - Neurological Exam Neurological exam: Present: alert, oriented X3 - Psychiatric Psychiatric exam: Present: normal affect, normal mood - Skin Skin exam: Present: warm, normal color ED Course - Reevaluation(s) Reevaluation #1: 08/30/21 13:20 Here with abdominal pain--differential could be but not limited to appendicitis, diverticulitis, cholecystitis, cholelithiasis, nephrolithiasis, gastritis, pancreatitis, duodenitis, colitis, irritable bowel syndrome, cystitis or even constipation, so in order to rule these out we will go ahead and order routine acute abdomen that include CBC, CMP, urinalysis, and CT imaging of the abdomen/pelvic. 08/30/21 14:55 Pt is signed out to Dr Ibrahim at shift change at 15:00 PM while waiting for this patient CT abd/pel --concern is for appendicitis. 08/30/21 14:57 ED Medical Decision Making - Lab Data Result diagrams: 08/30/21 07:07 08/30/21 07:07 ED Disposition Clinical Impression: Abdominal pain, acute Disposition: 01 HOME / SELF CARE / HOMELESS Is pt being admited?: No Does the pt Need Aspirin: No Condition: Stable Instructions: Abdominal Pain, Adult, [id number] Additional Instructions: Return to the emergency department should you develop worsening symptoms, inability to tolerate food or liquids, high fever or any other concerns Prescriptions: traMADoL [Ultram] 50 mg PO Q6HR PRN #10 tablet PRN Reason: Pain Referrals: MICHELLE BONDS MD [Primary Care Provider] - 3-5 Days PRIMARY CAREMD [Referring] - 3-5 Days <AVELINO IBRAHIM - Last Filed: 08/30/21 17:46> ED Review of Systems ROS: Stated complaint: LOWER RT ABD PAIN ,CHILLS Other details as noted in HPI ED Course Vital Signs 08/30/21 08/30/21 08/30/21 06:32 12:49 12:50 Temperature 97.4 F L Pulse Rate 107 H 87 Respiratory 18 18 Rate Blood Pressure 152/81 165/81 [Left] O2 Sat by Pulse 100 100 100 Oximetry - Reevaluation(s) Reevaluation #2: 08/30/21 17:45 Patient states he is doing okay. CT scan discussed with patient. Patient given strong warnings to return should he develop worsening or new symptoms. Patient verbalized understanding. Patient states he has a primary physician ED Medical Decision Making - Lab Data Result diagrams: 08/30/21 07:07 08/30/21 07:07 Laboratory Tests 08/30/21 08/30/21 08/30/21 07:07 07:07 Unknown WBC 7.3 RBC 5.54 H Hgb 14.7 Hct 44.4 MCV 80 L MCH 27 L MCHC 33 RDW 14.0 Plt Count 335 Lymph % (Auto) 40.1 H Gilliam % (Auto) 8.3 H Eos % (Auto) 2.1 Baso % (Auto) 0.3 Lymph # (Auto) 2.9 Gilliam # (Auto) 0.6 Eos # (Auto) 0.2 Baso # (Auto) 0.0 Seg Neutrophils % 49.2 Seg Neutrophils # 3.6 Sodium 136 L Potassium 3.7 Chloride 98.2 Carbon Dioxide 27 Anion Gap 15 BUN 10 Creatinine 1.0 Estimated GFR > 60 BUN/Creatinine Ratio 10 Glucose 94 Calcium 9.9 Total Bilirubin 0.80 AST 24 ALT 29 Alkaline Phosphatase 56 Total Protein 8.3 H Albumin 4.8 Albumin/Globulin Ratio 1.4 Urine Color Yellow Urine Turbidity Clear Urine pH 5.0 Ur Specific [place] 1.015 Urine Protein <15 mg/dl Urine Glucose (UA) Neg Urine Ketones 20 Urine Blood Neg Urine Nitrite Neg Urine Bilirubin Neg Urine Urobilinogen < 2.0 Ur Leukocyte Esterase Neg Urine WBC (Auto) 1.0 Urine RBC (Auto) 2.0 Urine Mucus Few - Radiology Data Radiology results: report reviewed (CT abdomen pelvis), image reviewed (CT abdomen pelvis) CT ABDOMEN AND PELVIS WITH CONTRAST INDICATION / CLINICAL INFORMATION: RLQ PAIN. TECHNIQUE: Axial CT images were obtained through the abdomen and pelvis after 100 mL Omnipaque [address] scans at this location are performed using CT dose reduction for ALARA by means of automated exposure control. COMPARISON: None available. FINDINGS: LOWER CHEST: No significant abnormality. LIVER: No significant abnormality. GALLBLADDER: No significant abnormality. BILE DUCTS: No significant abnormality. PANCREAS: No significant abnormality. SPLEEN: No significant abnormality. ADRENALS: No significant abnormality. RIGHT KIDNEY / URETER: No significant abnormality. LEFT KIDNEY / URETER: No significant abnormality. STOMACH / SMALL BOWEL: No significant abnormality. COLON: No significant abnormality. APPENDIX: No significant abnormality. PERITONEUM: No free fluid. No free air. No fluid collection. LYMPH NODES: No significant adenopathy. AORTA / ARTERIES: No significant abnormality. IVC / VEINS: No significant abnormality. URINARY BLADDER: No significant abnormality. REPRODUCTIVE ORGANS: No significant abnormality. ADDITIONAL FINDINGS: None. SKELETAL SYSTEM: Chronic bilateral L5 pars defects without significant spo ndylolisthesis. IMPRESSION: 1. No acute process in the abdomen or pelvis. Normal appendix. Signer Name: Darlyn Stratton MD Signed: 08/30/2021 4:36 PM Workstation Name: [id number] Transcribed By: PHI Dictated By: Delbert Stratton MD Electronically Authenticated By: Delbert Stratton MD Signed Date/Time: 08/30/21 163 DD/ 33 TD/TT: Critical care attestation.: If time is entered above; I have spent that time in minutes in the direct care of this critically ill patient, excluding procedure time. ED Disposition Is pt being admited?: No Does the pt Need Aspirin: No Time of Disposition: 17:46
--- NOTE | 2021-08-30 16:41 | Cat Scan Report ---
CT ABDOMEN AND PELVIS WITH CONTRAST INDICATION / CLINICAL INFORMATION: RLQ PAIN. TECHNIQUE: Axial CT images were obtained through the abdomen and pelvis after 100 mL Omnipaque [address] scans at this location are performed using CT dose reduction for ALARA by means of automated exposure control. COMPARISON: None available. FINDINGS: LOWER CHEST: No significant abnormality. LIVER: No significant abnormality. GALLBLADDER: No significant abnormality. BILE DUCTS: No significant abnormality. PANCREAS: No significant abnormality. SPLEEN: No significant abnormality. ADRENALS: No significant abnormality. RIGHT KIDNEY / URETER: No significant abnormality. LEFT KIDNEY / URETER: No significant abnormality. STOMACH / SMALL BOWEL: No significant abnormality. COLON: No significant abnormality. APPENDIX: No significant abnormality. PERITONEUM: No free fluid. No free air. No fluid collection. LYMPH NODES: No significant adenopathy. AORTA / ARTERIES: No significant abnormality. IVC / VEINS: No significant abnormality. URINARY BLADDER: No significant abnormality. REPRODUCTIVE ORGANS: No significant abnormality. ADDITIONAL FINDINGS: None. SKELETAL SYSTEM: Chronic bilateral L5 pars defects without significant spondylolisthesis. IMPRESSION: 1. No acute process in the abdomen or pelvis. Normal appendix. Signer Name: Darlyn Stratton MD Signed: 08/30/2021 4:36 PM Workstation Name: [id number]
[2021-08-30 17:52] VITALS: BP 114/54
== END 2021-08-30 17:53 | disposition home or self-care (01) ==
LOC: ED 05:53
DX: R10.9 Unspecified abdominal pain (principal); I10 Essential (primary) hypertension; Z88.0 Allergy status to penicillin
CPT/HCPCS: 36415; 74177; 80053; 81001; 85025; 96374; 99284; J2405; Q9967